=== PATIENT | male | born 1980 | race Caucasian/White ===

== ENCOUNTER → 2018-09-01 16:21 | Outpatient (CLI) | payer OTHER, SELFPAY ==
--- NOTE | 2018-09-01 16:28 | US_ITS ---
STUDY: SCROTUM ULTRASOUND REASON FOR EXAM: Male, 38 years old. Right testicular pain. TECHNIQUE: Ultrasound evaluation of the scrotum was performed with color Doppler and static connor-scale imaging. COMPARISON: None. FINDINGS: RIGHT TESTICLE INTRATESTICULAR: There is a normal size of the right testicle. The right testicle measures 4.8 x 3.1 x 2.0 cm. There is a heterogeneous echotexture. There is cystic dilatation of the rete testes. There is normal arterial and normal venous vascularity. There is no demonstrated right testicular mass or cyst. EXTRATESTICULAR: The epididymis is normal in size. The epididymis head measures 1.2 cm. There is normal vascularity of the epididymis. There is no demonstrated epididymal cystic structure. There is no demonstrated hydrocele. There is no demonstrated varicocele. There is no demonstrated extratesticular mass or cyst. LEFT TESTICLE INTRATESTICULAR: There is a normal size of the left testicle. The left testicle measures 4.6 x 3.0 x 2.2 cm. There is a heterogeneous echotexture. There is cystic dilatation of the rete testes. There is normal arterial and normal venous vascularity. There is no demonstrated left testicular mass or cyst. EXTRATESTICULAR: The epididymis is normal in size. The epididymis head measures 1.2 cm. There is normal vascularity of the epididymis. There is no demonstrated epididymal cystic structure. There is no demonstrated hydrocele. There is no demonstrated varicocele. There is no demonstrated extratesticular mass or cyst. US/Testicular with Arterial Flow IMPRESSION: No intratesticular mass. There is normal blood flow. There is bilateral cystic dilatation of the rete testes. Electronically Signed: Jorge Jerez MD at 17:51 EDT , Service support ,
== END ==
PROVIDERS: Family Provider Family Medicine; PCP Family Medicine; Referring Provider Family Medicine; Visit Provider Family Medicine
DX: N50.811 Right testicular pain (principal)
CPT/HCPCS: 76870; 93976